=== PATIENT | male | born 1975 | race Caucasian/White ===

== ENCOUNTER 2018-06-23 02:22 | Emergency (ER) | payer OTHER, SELFPAY ==
[2018-06-23 02:25] VITALS: BP 149/97; PULSE 72; RESP 17; TEMP 36.4; O2SAT 96; BMI 28.0
--- NOTE | 2018-06-23 02:41 | ED.RN ---
CALLED MARCIA FROM [facility]. SHE IS HERE.
--- NOTE | 2018-06-23 02:59 | ED.VISSUMM ---
- ER Visit Summary Date of Service: 06/23/18 Chief Complaint: Left elbow injury History of Present Illness: The patient is a 42 M who presents with left elbow injury and pain. Injury occurred half an hour prior to presentation. 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 He had immediate pain. Patient states he had been wearing a sleeve for compression on his elbow for the prior 2 days. He is currently complaining of pain and weakness in the elbow. He is ambidextrous but predominantly right-handed. He denies any other complaints at this time. Physical Examination: Patient is awake and alert, well-nourished well-developed sitting in a chair in no distress. Patient has full active range of motion of all joints in the bilateral upper extremities. Radial pulses are 2+ and symmetric. Visual inspection shows asymmetric prominence of the brachial radialis on the left compared to the right. Patient has tenderness over the left lateral epicondyles and brachial radialis. Weak anesthetic assistant strength in the left hand and pain with extension of the wrist against resistance. Patient has increased anesthetic assistant strength when pressure is applied circumferentially around the forearm. No asymmetry to the biceps. No tenderness over the upper arm. AIN/PIN and ulnar nerve function are intact. Sensation intact all dermatomes. Test Results: Clinical Impression(s) from Imaging Studies Elbow X-Ray 06/23/18 02:47 IMPRESSION: Normal x-ray examination of the elbow. Electronically Signed: Garett Cortez MD at 3:48 EDT Tel , Service support , Emergency Department Course and Treatment: Patient presents after a left elbow injury at work. X-ray showed no dislocation or fracture, no soft tissue swelling. The examination is most consistent with lateral epicondylitis, possibly with a strain to the brachioradialis, as it is tender to palpation as well and shows mild swelling compared to the right. Patient was counseled in supportive care, including rest, ice, compression, and NSAID usage. He is to follow-up with orthopedics if he does not have improvement with conservative treatment. Worker's Comp. paperwork was filled out and patient is to follow up with corporate care as instructed by his employer. Patient was discharged home. Treatment Plan: [] Disposition: [] Impression: Left lateral epicondylitis This note was generated with [employer] dictation software. It may contain incorrect words, spelling, and punctuation that were not noted in review of the chart prior to signing ED Disposition - Plan for ED Patient: Disposition: Home or Assisted Living Chief Complaint: Upper Extremity Injury Instructions: ED Epicondylitis Lateral Elbow Referrals: Corporate,Care [GROUP OF PHYSICIANS] - As soon as possible Ezequiel Lopez, DO [STAFF PHYSICIAN] - 1 Week if not improving [facility],Out of [NON-STAFF] - Additional Instructions: Use ibuprofen or naproxen for the next 3-5 days to help with inflammation, even if you do not think you need it for pain management. Apply ice 3-4 times a day for 15-20 minutes each time. Rest the elbow as much as possible. Avoid any repetitive movements or lifting heavy weights while you are healing. You may use a compression band on the elbow or on the forearm as needed for comfort. If you continue to have worsening of your condition or if you are not noting improvement in 1 week, please follow-up with the orthopedic doctor for another evaluation. Please follow-up with Worker's Comp. as advised by your company. If you have any worsening of your condition or any new concerning symptoms, please return immediately to the emergency department for another evaluation.
--- NOTE | 2018-06-23 03:03 | ED.DCSUM_ITS ---
- ER Visit Summary Date of Service: 06/23/18 Chief Complaint: Left elbow injury History of Present Illness: The patient is a 42 M who presents with left elbow injury and pain. Injury occurred half an hour prior to presentation. 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 He had immediate pain. Patient states he had been wearing a sleeve for compression on his elbow for the prior 2 days. He is currently complaining of pain and weakness in the elbow. He is ambidextrous but predominantly right-handed. He denies any other complaints at this time. Physical Examination: Patient is awake and alert, well-nourished well-developed sitting in a chair in no distress. Patient has full active range of motion of all joints in the bilateral upper extremities. Radial pulses are 2+ and symmetric. Visual inspection shows asymmetric prominence of the brachial radialis on the left compared to the right. Patient has tenderness over the left lateral epicondyles and brachial radialis. Weak athletic director strength in the left hand and pain with extension of the wrist against resistance. Patient has increased athletic director strength when pressure is applied circumferentially around the forearm. No asymmetry to the biceps. No tenderness over the upper arm. AIN/PIN and ulnar nerve function are intact. Sensation intact all dermatomes. Test Results: Clinical Impression(s) from Imaging Studies Elbow X-Ray 06/23/18 02:47 IMPRESSION: Normal x-ray examination of the elbow. Electronically Signed: Garett Cortez MD at 3:48 EDT Tel , Service support , Emergency Department Course and Treatment: Patient presents after a left elbow injury at work. X-ray showed no dislocation or fracture, no soft tissue swelling. The examination is most consistent with lateral epicondylitis, possibly with a strain to the brachioradialis, as it is tender to palpation as well and shows mild swelling compared to the right. Patient was counseled in supportive care, including rest, ice, compression, and NSAID usage. He is to follow-up with orthopedics if he does not have improvement with conservative treatment. Worker's Comp. paperwork was filled out and patient is to follow up with corporate care as instructed by his employer. Patient was discharged home. Treatment Plan: [] Disposition: [] Impression: Left lateral epicondylitis This note was generated with [employer] dictation software. It may contain incorrect words, spelling, and punctuation that were not noted in review of the chart prior to signing ED Disposition - Plan for ED Patient: Disposition: Home or Assisted Living Chief Complaint: Upper Extremity Injury Instructions: ED Epicondylitis Lateral Elbow Referrals: Corporate,Care [GROUP OF PHYSICIANS] - As soon as possible Ezequiel Lopez, DO [STAFF PHYSICIAN] - 1 Week if not improving [facility],Out of [NON-STAFF] - Additional Instructions: Use ibuprofen or naproxen for the next 3-5 days to help with inflammation, even if you do not think you need it for pain management. Apply ice 3-4 times a day for 15-20 minutes each time. Rest the elbow as much as possible. Avoid any repetitive movements or lifting heavy weights while you are healing. You may use a compression band on the elbow or on the forearm as needed for comfort. If you continue to have worsening of your condition or if you are not noting improvement in 1 week, please follow-up with the orthopedic doctor for another evaluation. Please follow-up with Worker's Comp. as advised by your company. If you have any worsening of your condition or any new concerning symptoms, please return immediately to the emergency department for another evaluation.
--- NOTE | 2018-06-23 03:06 | DCINST.ED_ITS ---
ED Disposition - Plan for ED Patient: Disposition: Home or Assisted Living Chief Complaint: Upper Extremity Injury Instructions: ED Epicondylitis Lateral Elbow Referrals: [facility],Out of [Primary Care Provider] - Ezequiel Lopez DO [STAFF PHYSICIAN] - 1 Week if not improving Corporate,Care [GROUP OF PHYSICIANS] - As soon as possible Additional Instructions: Use ibuprofen or naproxen for the next 3-5 days to help with inflammation, even if you do not think you need it for pain management. Apply ice 3-4 times a day for 15-20 minutes each time. Rest the elbow as much as possible. Avoid any repetitive movements or lifting heavy weights while you are healing. You may use a compression band on the elbow or on the forearm as needed for comfort. If you continue to have worsening of your condition or if you are not noting improvement in 1 week, please follow-up with the orthopedic doctor for another evaluation. Please follow-up with Worker's Comp. as advised by your company. If you have any worsening of your condition or any new concerning symptoms, please return immediately to the emergency department for another evaluation.
[2018-06-23 04:10] VITALS: RESP 16
== END 2018-06-23 04:11 | disposition home or self-care (01) ==
PROVIDERS: Emergency Provider Emergency Medicine
DX: M77.12 Lateral epicondylitis, left elbow (principal); F17.290 Nicotine dependence, other tobacco product, uncomplicated
CPT/HCPCS: 73080; 99282

== ENCOUNTER → 2018-09-22 06:14 | Outpatient (CLI) | payer OTHER, SELFPAY ==
--- NOTE | 2018-09-22 06:16 | MRI_ITS ---
STUDY: MRI LEFT ELBOW REASON FOR EXAM: Decreased strength in left arm, lifting injury 3 months ago. TECHNIQUE: Standardized fat and water weighted pulse sequences were obtained in all 3 orthogonal planes. COMPARISON: Radiographs 06/23/2018. FINDINGS: Normal radio-capitellum articulation. Normal radial collateral ligamentous complex. There is tendinosis and an undersurface/intrasubstance partial tear of the common extensor tendon (inversion recovery coronal images 14, 15). There is mild arthrosis of the ulnotrochlear articulation with mild chondral thinning and subchondral cystic change (inversion recovery coronal images 14, 15). Normal ulnar collateral ligamentous complex. Normal common flexor tendon. The cubital tunnel is normal, with a normal ulnar nerve. There is an intrasubstance partial tear of the distal biceps tendon measuring 0.8 cm in length, approximately 1.1 cm proximal to the radial tuberosity insertion (T2 sagittal image 11; T2 axial image 10). Normal brachialis musculotendinous insertion. Normal triceps tendon and teno-osseous insertion. Normal olecranon process. The visualized distal humerus, proximal radius, and ulna are normal. The visualized muscles of the distal arm and proximal forearm are normal. There is a ganglion cyst anterior to the radial head (inversion recovery coronal image 9) measuring 1.1 cm in length. MRI/Upper Ext Joint Only(Routine) IMPRESSION: Lateral epicondylitis with undersurface/intrasubstance partial tear of the common extensor tendon. Intrasubstance partial tear of the distal biceps tendon. Mild ulnotrochlear arthrosis. Small ganglion cyst anterior to the radial head. Electronically Signed: Brian Robles MD at 8:38 EST Tel , Service support ,
== END ==
PROVIDERS: Family Provider Family Medicine; PCP Family Medicine; Referring Provider Orthopaedic Surgery; Visit Provider Orthopaedic Surgery
DX: M77.12 Lateral epicondylitis, left elbow (principal)
CPT/HCPCS: 73221

== ENCOUNTER 2018-11-24 08:00 | Outpatient (RCR) | payer OTHER, SELFPAY ==
--- NOTE | 2018-10-17 14:12 | HP.OTEVAL_ITS ---
Patient's Visit Information LUIS E PLUNKETT is a 42 year old M, referred to Occupational Therapy by Laura Melo DO, with a diagnosis of L elbow pain. Date of Evaluation: 10/17/18 Occupational Therapist: Pati Zimmer - Subjective Subjective: Arrived and noted injury started about 6 months ago. HE has continued to work at [employer] at same job. He noted that while at work he notices feeling like tendon was popping and went to reactor fueling supervisor who sent him to [facility]. He will recieve cortisone inject on 10/30/17. - Pain Left Elbow 2 Pain Intensity Range: 1, 8 - Objective Objective/Observation: Increased tenderness around elbow with palpation; decreased ROM and strength noted. - ROM Elbow: flexion R 7-120, L 18-113 - 3-4/10; extension R 18--8, L WFL Forearm: supination R 0-59, L 0-0 MP: WFL PIP: WFL DIP: WF - Strength Seed And Fertilizer Specialist: flexed position 2 R 115, L 106; extended position 2 R 116, L 64 Lateral Pinch: R 33, L 25 Tripod Pinch: R 30, L 21 Tip-to-Tip Pinch: R 19, L 11 - Sensation Thumb: R 3.84, L 3.22 Index: R 3.61 , L 2.83 Middle: R 3.22 , L 2.83 Ring: R 2.83 , L 2.83 Little: R 2.83 , L 3.22 Stereognosis: Normal - Right, Normal - Left Kinesthesia: Normal - Right, Normal - Left Proprioception: Normal - Right, Normal - Left - Nine Hole Peg Right: 24.08 s Left: 22.61 s - Upper Limb Functional Index ULFI Score: 10.5 - Quick DASH-Disab of Arm,Shoulder& Hand Quick DASH Score: 28.3325 - Rehabilitation General Assessment: Luis E seen for Ot evaluation on this date of 10/17/18. He has been dealing with elbow related pain for last six months. He has had MRI confirmation of distal partial biceps tendon tears, mild ulnotrochear arthosis and small ganglion cyst of radial head. He additional has decreased ROM, slight edema around L elbow, and decreased strength with L UE related tasks when compared to R UE. He has been working since time of injury. Luis E works at [employer]. 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 Due to pain and consisently decreased ROM, strength, and pain he would benefit from 2x 6 weeks of conservative management of L elbow to promote increased ROM. Rehabilitation Potential: Good - Anticipated Interventions Anticipated Interventions: Early Active Motion, A/AAROM/PROM, Strengthening, Edema Control, Modalities, Joint Protection/Energy Conservation, Ergonomic Education, Fine Motor Coord/Boris, ADL Training, Caregiver Training, Home Program - Visit Plan Frequency: 2x /Week Duration: 6 Weeks TEXT: Thank you for the opportunity to evaluate your patient. For Medicare and Medicare HMO plans, please review the plan of care and approve it. It will need to be FAXED BACK to us at [phone] for Medicare purposes. Please let me know if there are questions or concerns regarding this plan of care. Physician Signature: Date:
--- NOTE | 2018-10-17 17:22 | HP.OTEVAL_ITS ---
Patient's Visit Information LUIS E PLUNKETT is a 42 year old M, referred to Occupational Therapy by Laura Melo DO, with a diagnosis of L elbow pain. Date of Evaluation: 10/17/18 Occupational Therapist: Pati Zimmer - Subjective Subjective: Pt, referral from [facility]. Arrived and noted injury started about 6 months ago. HE has continued to work at [employer] at same job. He noted that while at work he notices feeling like tendon was popping and went to supervisor of operations who sent him to hospital. He will receive cortisone inject on 10/30/17. - Pain Left Elbow 2 Pain Intensity Range: 1, 8 - Objective Objective/Observation: Increased tenderness around elbow with palpation; decreased ROM and strength noted. - ROM Elbow: flexion R 7-120, L 18-113 - 3-4/10; extension R 18--8, L WFL Forearm: supination R 0-59, L 0-0 MP: WFL PIP: WFL DIP: WF ROM Comments: Increased achiness with all movements. - Strength Supervisor [employer]: flexed position 2 R 115, L 106; extended position 2 R 116, L 64 Lateral Pinch: R 33, L 25 Tripod Pinch: R 30, L 21 Tip-to-Tip Pinch: R 19, L 11 Strength Comments: increased achiness with all muscle testing. He noted that is baseline since injury 6 months ago. - Edema Elbow: slight edema noted around lateral epicondyle - Sensation Thumb: R 3.84, L 3.22 Index: R 3.61 , L 2.83 Middle: R 3.22 , L 2.83 Ring: R 2.83 , L 2.83 Little: R 2.83 , L 3.22 Stereognosis: Normal - Right, Normal - Left Kinesthesia: Normal - Right, Normal - Left Proprioception: Normal - Right, Normal - Left - Nine Hole Peg Right: 24.08 s Left: 22.61 s - Upper Limb Functional Index ULFI Score: 10.5 - Quick DASH-Disab of Arm,Shoulder& Hand Quick DASH Score: 28.3325 - Goals Goal:: Luis E to increase L UE orthotics prosthetics technician strength in flexed and extended position within 20 lbs of R UE to promote increase dstability and strength of L elbow to promote increased strength and decrease pain by d/c. Goal:: Luis E to maintain of increased L elbow ROM for flexion/extenion with ability to get to neutral position to promote increased mobility and decrease pain by d/c. Goal:: Luis E to have no more than 1/10 pain with repetitive tasks and with consistent lifting of 10-20 lbs to promote increased ability to complete ADL/IADLs at PLOF and decrease risk of further injury by d/c. Goal:: Dionicio to complete edema management program as needed for L UE edema at least 80% of the time to promote management of symptoms and promote return to all ADL/IADLs at PLOF. Goal:: Luis E to be (I) to complete good body mechanics and L UE mechanics with repetitive lifting tasks t4/5 trials 80% of the time to promote ideal posture and alignment to reduce pain and risk of further injury by d/c. Goal:: Luis E to be (i) to complete HEP for L UE to promote increase stability and pain management of L UE 4/5 trials 80% of the time to promote QOL and progression with conservation treatment by d/c. - Rehabilitation General Assessment: Luis E seen for OT evaluation on this date of 10/17/18. He has been dealing with elbow related pain for last six months. MRI confirmation of distal partial biceps tendon tears, mild ulnotrochear arthrosis and small ganglion cyst of radial head complete within last month. He has decreased ROM, slight edema around L elbow, and decreased strength with L UE related tasks when compared to R UE. He has been working since time of injury. Luis E works at [employer]. 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 Due to pain and consistently decreased ROM, strength, and pain he would benefit from 2x 6 weeks of conservative management of L elbow to promote increased ROM. Rehabilitation Potential: Good - Anticipated Interventions Anticipated Interventions: Early Active Motion, A/AAROM/PROM, Strengthening, Edema Control, Modalities, Joint Protection/Energy Conservation, Ergonomic Education, Fine Motor Coord/Boris, ADL Training, Caregiver Training, Home Program - Visit Plan Frequency: 2x /Week Duration: 6 Weeks General Plan: OT to work on general stability of L UE to promote pain management and edema reduction to increased ROM and general ability to complete ADl/IADl related tasks. He is to complete PRE for strengthening, modalities as needed for pain management, and general body line finisher training for the reduction of further injury to return to PLOF and all work related tasks with reduced pain. TEXT: Thank you for the opportunity to evaluate your patient. For Medicare and Medicare HMO plans, please review the plan of care and approve it. It will need to be FAXED BACK to us at [phone] for Medicare purposes. Please let me know if there are questions or concerns regarding this plan of c are. Physician Signature: Date:
--- NOTE | 2018-11-10 09:23 | OTREVAL_ITS ---
Laura Melo, DO, It has been my pleasure to treat LUIS E PLUNKETT over the last 6 visits for L elbow pain. Please see the progress note below for an update on the occupational therapy plan of care! Subjective: Arrived and noted cortisone injection is working. Feels he is about 85-90% back. Continues to work FT without pain. Objective/Function: Completed additional measurements and are as follows on this date of 11/10/18: ROM: Elbow: - flexion: R 14-124, L 15-120. Strength: Carpet Installation Specialist from Flexed position: R 128, L 123. Carpet Installation Specialist From extended position: R 134, L 120. lateral pinch: R 32, L 32. tripod: R 29, L 32. Pincer: R 20, L 19. Sensory testing with monofilament testing: R 2nd 2.83 , 3rd 2.83 ,4th 2.83 ,5th 2.83 ,thumb 3.22. L 2nd 2.83 , 3rd 3.22 ,4th 2.83 ,5th 3.22 ,thumb 3.22. Increase in strength and decrease in tenderness with palpation from initial evaluation. Plan Frequency: 2x /Week Duration: 3 Weeks Visits in this POC: 12 Plan: continue POC to finish remainder of 12 approved visits as needed. Will continue strengthening with BTE as well as will add in gym-based exercises. Will continue for next 3 appointments. New HEP provided for PRE. If doing well will start looking at d/c. HEP provided for upper back, shoulder, and elbow and forearm strengthening. Goals - Goals Goal:: Luis E to increase L UE humanities teacher strength in flexed and extended position within 30 lbs of R UE to promote increased stability and strength of L elbow to promote increased strength and decrease pain by d/c. Goal:: Luis E to maintain of increased L elbow ROM for flexion/extenion with ability to get to neutral position to promote increased mobility and decrease pain by d/c. Goal:: Luis E to have no more than 1/10 pain with repetitive tasks and with consistent lifting of 10-20 lbs to promote increased ability to complete ADL/IADLs at PLOF and decrease risk of further injury by d/c. Goal:: Dionicio to complete edema management program as needed for L UE edema at least 80% of the time to promote management of symptoms and promote return to all ADL/IADLs at PLOF. Goal:: Luis E to be (I) to complete good body mechanics and L UE mechanics with repetitive lifting tasks t4/5 trials 80% of the time to promote ideal posture and alignment to reduce pain and risk of further injury by d/c. Goal:: Luis E to be (i) to complete HEP for L UE to promote increase stability and pain management of L UE 4/5 trials 80% of the time to promote QOL and progression with conservation treatment by d/c. Anticipated Interventions Anticipated Interventions: Early Active Motion, A/AAROM/PROM, Strengthening, Edema Control, Modalities, Joint Protection/Energy Conservation, Ergonomic Education, Fine Motor Coord/Boris, ADL Training, Caregiver Training, Home Program Please do not hesitate to contact me at [phone] by phone or if you have questions or concerns regarding this new plan of care! Sincerely, Pati Zimmer
--- NOTE | 2018-11-24 08:26 | HP.OTDCSUM ---
HP - OT D/C Summary It has been my pleasure to treat LUIS E PLUNKETT under orders from Laura Melo DO for the diagnosis of L elbow pain for a total of 7 visit(s). Please see the following information for a summary of their discharge status. - Overall Improvement % Improvement: 100 - Objective Objective/Function: Completed reassessment on this date 11/24/18. Measurements on as follows: ROM: Elbow. - Flexion R 10-11, L 5-121. - Supination R 0-76, L 0-74. Strength: [employer] in flexed R 116, L 119. [employer] in extended: R 135, L 140. Lateral R 35, L 30. Three jaw R 30, L 32. Pincer R 16, L 18. Sensation testing: R hand 2-5th, thumb digits: 2.83, 3.61, 2.83, 2.83, thumb 3.22. L hand 2-5th digits, thumb: 2.83, 2.83, 2.83, 2.83, thumb 2.83. He has progressed in all tasks since inital evaluation and will be d/c'd at this time. 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 Goal:: Luis E to maintain of increased L elbow ROM for flexion/extenion with ability to get to neutral position to promote increased mobility and decrease pain by d/c. Goal:: Luis E to have no more than 1/10 pain with repetitive tasks and with consistent lifting of 10-20 lbs to promote increased ability to complete ADL/IADLs at PLOF and decrease risk of further injury by d/c. Goal:: Dionicio to complete edema management program as needed for L UE edema at least 80% of the time to promote management of symptoms and promote return to all ADL/IADLs at OF. Goal:: Luis E to be (I) to complete good body mechanics and L UE mechanics with repetitive lifting tasks t4/5 trials 80% of the time to promote ideal posture and alignment to reduce pain and risk of further injury by d/c. Goal:: Luis E to be (i) to complete HEP for L UE to promote increase stability and pain management of L UE 4/5 trials 80% of the time to promote QOL and progression with conservation treatment by d/c. - Plan Plan: continue HEP as instructed and can upgrade to blue theraband. He is to call with questions/concerns. - D/C Information If there are questions or concerns regarding this patient's occupational therapy, please fell free to call me at [phone]. Thank you for the referral of this patient. Sincerely, Pati Zimmer
== END 2018-11-24 19:00 | disposition home or self-care (01) ==
LOC: OT 08:00
PROVIDERS: Family Provider Family Medicine; PCP Family Medicine; Referring Provider Orthopaedic Surgery; Visit Provider Orthopaedic Surgery
DX: M77.12 Lateral epicondylitis, left elbow (principal)
CPT/HCPCS: 97035; 97110; 97166; 97168; 97530

== ENCOUNTER → 2021-02-07 08:14 | Outpatient (CLI) | payer OTHER, SELFPAY ==
[2021-02-07 10:08] LABS: Hematocrit 44.5 % (40-54); Mean Corp Hgb Conc 33.7 g/dL (32-36); Mean Corpuscular Hgb 30.3 pg (27.0-32.0); Mean Corpuscular Volume 89.9 fL (80-94); Mean Platelet Vol. 9.8 fl (6.2-12.0); Platelet Count 250 K/mm3 (150-450); RBC Distribution Width CV 11.8 % (11.6-14.6); RBC Distribution Width SD 38.8 fl (35.1-43.9); Red Blood Count 4.95 M/mm3 (4.6-6.2); White Blood Count 5.1 K/mm3 (4.4-11.0)
[2021-02-07 10:34] LABS: ALB/GLOB Ratio 1.4 RATIO (0.9-2.4); AST(SGOT) 38 U/L (15-37); Alanine Aminotransfer ALT/SGPT 65 U/L (16-61); Albumin, Serum 4.3 g/dL (3.2-5.0); Alkaline Phosphatase 79 U/L (45-117); Anion Gap 8 (5-15); BUN 14 mg/dL (7-18); Calcium,Total 8.9 mg/dL (8.5-10.1); Chloride 101 mmol/L (98-107); Creatinine, Serum 1.08 mg/dL (0.70-1.30); EST Glomerular Filtration Rate 79 mL/min (>60); Est Glom Filt Rate - Afr Amer 95 mL/min (>60); Glucose 135 mg/dL (74-106); Potassium 4.4 mmol/L (3.5-5.1); Protein, Total 7.3 g/dL (6.4-8.2); Sodium Level 139 mmol/L (136-145)
== END ==
PROVIDERS: PCP Family Medicine; Referring Provider Nurse Practitioner Family; Visit Provider Nurse Practitioner Family
DX: R10.9 Unspecified abdominal pain (principal)
CPT/HCPCS: 36415; 80053; 85027

== ENCOUNTER → 2021-02-08 08:31 | Outpatient (CLI) | payer OTHER, SELFPAY ==
[2021-02-08 10:33] LABS: GGTP 97 U/L (15-85)
[2021-02-09 06:08] LABS: HEPATITIS B SURFACE AG Negative (Negative); Hepatitis A AB, Total Negative (Negative); Hepatitis A IgM Antibody Negative (Negative); Hepatitis B Core AB IgM Negative (Negative); Hepatitis B Core Ab Total Negative (Negative); Hepatitis C Ab <0.1 s/co ratio (0.0-0.9)
[2021-02-09 16:27] LABS: Hep B Surface Antibodies Non Reactive (.)
== END ==
PROVIDERS: PCP Family Medicine; Referring Provider Family Medicine; Visit Provider Family Medicine
DX: R74.8 Abnormal levels of other serum enzymes (principal)
CPT/HCPCS: 36415; 82977; 86704; 86705; 86706; 86708; 86709; 86803; 87340

== ENCOUNTER → 2021-02-11 09:52 | Outpatient (CLI) | payer OTHER, SELFPAY ==
--- NOTE | 2021-02-11 09:58 | US_ITS ---
EXAM: US SCROTUM CLINICAL INDICATION: mass on exam - left testicle TECHNIQUE: Realtime ultrasound of the testicles was performed with grayscale and Color Doppler analysis. This report was created using [email or web address] technology. COMPARISON: None. FINDINGS: RIGHT TESTICLE: Unremarkable. Normal in size and echotexture. No focal lesion. Normal blood flow is present. LEFT TESTICLE: Unremarkable. Normal in size and echotexture. No focal lesion. Normal blood flow is present. EPIDIDYMIDES: Unremarkable. Normal in size and echotexture, without focal lesion. Normal color Doppler flow pattern in the epididymis. SCROTUM: Small septated right hydrocele. Slight left hydrocele. Bilateral varicoceles. US/Testicular with Arterial Flow IMPRESSION: No testicular masses. Right larger than left hydroceles with septations on the right side. Bilateral varicoceles. Electronically Signed: Nic Fernandez MD ([place]) at 15:38 EDT , Service support ,
--- NOTE | 2021-02-11 09:58 | US_ITS ---
INDICATION: ELEVATED LIVER ENZYMES EXAMINATION: US Abdomen RUQ (limited) TECHNIQUE: Contreras-scale and color Doppler imaging was performed of the right upper abdominal quadrant. COMPARISON: None. Findings: The liver is increased in echogenicity and sound attenuating. There is no evidence of contour nodularity. No focal hepatic mass is identified. The main portal vein is normal in size and patent demonstrating hepatopetal flow. The gallbladder is unremarkable without evidence of stones, wall thickening or pericholecystic fluid. Sonographic Rodgers''s tenderness is not appreciated. There is no evidence of intrahepatic biliary ductal dilatation. The CBD is nondilated measuring 4 mm at the level of the jaron hepatis. The visualized portions of the pancreas are unremarkable without evidence of focal or diffuse enlargement. Specifically, the tail is obscured by overlying bowel gas. Right kidney measures 10.1 cm in length. It is normal in echogenicity. No focal renal lesion is identified. There is no evidence of hydronephrosis. US/Abdomen Limited IMPRESSION: Hyperechoic and sound attenuating liver without evidence of contour nodularity. Findings are nonspecific and may be consistent with sequelae of fatty infiltration or other forms of diffuse liver disease. Remainder of the exam is otherwise unremarkable. Electronically Signed: Sudarshan Goel MD at 11:26 EDT Tel , Service support ,
== END ==
PROVIDERS: PCP Family Medicine; Referring Provider Nurse Practitioner Family; Visit Provider Nurse Practitioner Family
DX: N43.3 Hydrocele, unspecified (principal); I86.1 Scrotal varices; R74.8 Abnormal levels of other serum enzymes
CPT/HCPCS: 76705; 76870; 93976

== ENCOUNTER → 2021-03-09 07:57 | Outpatient (CLI) | payer OTHER, SELFPAY ==
--- NOTE | 2021-03-09 08:00 | CT_ITS ---
STUDY: CT ABDOMEN AND PELVIS WITH CONTRAST REASON FOR EXAM: Male, 45 years old. 5 year history of abdominal pain and lower back pain. RADIATION DOSAGE (If Supplied By Facility): CTDIvol = ( 16.50 ) mGy, DLP = ( 1288.77 ) mGycm TECHNIQUE: Transaxial images were obtained from the dome of the diaphragm to the symphysis pubis without oral contrast. Oral and amp; IV Readi-CAT and amp; 100mL Isovue-300 was administered. Sagittal and coronal images were reconstructed. Individualized dose optimization techniques were used for this CT. COMPARISON: None. FINDINGS: The visualized lung bases are unremarkable. The visualized portions of the heart are within normal limits. There is decreased attenuation of the liver consistent with steatosis. Hepatomegaly. Normal gallbladder and extrahepatic biliary system. Normal spleen. Normal pancreas. Normal bilateral adrenal glands. Normal right kidney. Normal left kidney. Normal visualized stomach. Normal small intestine. There is diffuse thickening of the wall of the left hemicolon. Colitis should be. Scattered sigmoid diverticula. The appendix is visualized and appears normal. There is scattered atherosclerotic calcification of the abdominal aorta, without a demonstrated aneurysm. Normal inferior vena cava. Normal retroperitoneum. Normal urinary bladder. Normal abdominal wall. Normal osseous structures. CT/Abdomen/Pelvis WITH Contrast IMPRESSION: Findings suggestive of colitis of the left hemicolon. Hepatomegaly and diffuse fatty infiltration of the liver. Electronically Signed: Bob Burns MD at 9:10 EDT , Service support ,
== END ==
PROVIDERS: PCP Family Medicine; Referring Provider Family Medicine; Visit Provider Family Medicine
DX: R10.9 Unspecified abdominal pain (principal)
CPT/HCPCS: 74177; Q9967

== ENCOUNTER → 2021-04-07 12:08 | Outpatient (CLI) | payer OTHER, SELFPAY ==
--- NOTE | 2021-04-07 12:11 | RAD_ITS ---
STUDY: X-RAY - THORACIC SPINE REASON FOR EXAM: Male, 45 years old. THORACIC BACK PAIN TECHNIQUE: 3 view(s) of the thoracic spine were obtained. COMPARISON: None. FINDINGS: Normal kyphosis of the thoracic spine. There is no substantial scoliosis. Normal thoracic vertebrae and endplates. Normal disc space heights. The soft tissue structures are unremarkable. RAD/Thoracic Spine 3 Views IMPRESSION: Normal x-ray examination of the thoracic spine. Electronically Signed: Bob Burns MD at 12:42 EDT , Service support ,
== END ==
PROVIDERS: PCP Family Medicine; Referring Provider Family Medicine; Visit Provider Family Medicine
DX: M54.6 Pain in thoracic spine (principal)
CPT/HCPCS: 72072

== ENCOUNTER → 2023-02-22 | Outpatient (CLI) | payer OTHER, SELFPAY ==
[2023-02-22 12:29] LABS: Bacteria 0 SEEN /hpf (None Seen); Mucous, Urine 0 SEEN /hpf (<or=2+); Red Blood Cells-Urine 0 SEEN /hpf (0-5); Squamous Epithelial Cells - UA 0 SEEN /hpf (0-5); White Blood Cells 0 SEEN /hpf (0-5)
[2023-02-22 12:35] LABS: Absolute Lymphocyte Count 1.12 X10^3/uL (0.83-4.51); Absolute Neutrophil Count 2.2 X10^3/uL (2.0-7.7); Basophil# 0.02 X10^3/uL; Basophil% 0.5 % (0-1); Eosinophil# 0.18 X10^3/uL; Eosinophils% 4.7 % (0-5); Hematocrit 44.2 % (40-54); Lymphocyte # 1.12 X10^3/ul (0.83-4.51); Mean Corp Hgb Conc 33.9 g/dL (32-36); Mean Corpuscular Hgb 30.2 pg (27.0-32.0); Mean Corpuscular Volume 88.9 fL (80-94); Monocyte# 0.31 X10^3/uL; NRBC Flagged by Analyzer 0 % (0-5); Neutrophil # 2.21 X10^3/uL (2.7-7.7); Neutrophil % 57.3 % (47-70); Platelet Count 206 K/mm3 (150-450); RBC Distribution Width CV 11.8 % (11.6-14.6); RBC Distribution Width SD 37.9 fl (35.1-43.9); Red Blood Count 4.97 M/mm3 (4.6-6.2); White Blood Count 3.9 K/mm3 (4.4-11.0)
[2023-02-22 12:45] LABS: ALB/GLOB Ratio 1.1 RATIO (0.9-2.4); AST(SGOT) 26 U/L (15-37); Alanine Aminotransfer ALT/SGPT 50 U/L (16-61); Albumin, Serum 3.9 g/dL (3.2-5.0); Alkaline Phosphatase 77 U/L (45-117); Anion Gap 3 (5-15); BUN 13 mg/dL (7-18); BUN/Creat Ratio 11.5 RATIO (10-20); Calcium,Total 8.8 mg/dL (8.5-10.1); Chloride 106 mmol/L (98-107); Cholesterol 163 mg/dL (200); Creatinine, Serum 1.13 mg/dL (0.70-1.30); EST Glomerular Filtration Rate 74 mL/min (>60); Est Glom Filt Rate - Afr Amer 90 mL/min (>60); Globulin 3.6 g/dL (2.2-4.2); Glucose 166 mg/dL (74-106); High Density Lipoprotein 26 mg/dL; Potassium 4.2 mmol/L (3.5-5.1); Protein, Total 7.5 g/dL (6.4-8.2); Sodium Level 136 mmol/L (136-145); Triglycerides 383 mg/dL; Very Low Density Lipoprotein 77 mg/dL (5-40)
[2023-02-22 15:53] LABS: Color, Urine Yellow (Yellow); Glucose, Dipstick Normal (Normal); Ketone-Dipstick Negative (Negative); Leukocyte Esterase-Dipstick Negative /ul (Negative); Nitrite-Dipstick Negative (Negative); Occult Blood-Urine Negative /ul (Negative); Protein-Dipstick 15 mg/dl (Negative); Specific Gravity, Urine 1.015 (1.002-1.030); Urine Bilirubin Dipstick Negative (Negative); Urine Clarity Clear (Clear); Urine Urobilinogen Normal (Normal)
== END | disposition home or self-care (01) ==
LOC: MFPLAB 08:24
PROVIDERS: Family Medicine; PCP Family Medicine; Visit Provider Family Medicine
DX: E11.9 Type 2 diabetes mellitus without complications (principal)
CPT/HCPCS: 36415; 80053; 80061; 81001; 85025

== ENCOUNTER → 2024-09-15 | Outpatient (CLI) | payer OTHER, SELFPAY ==
--- NOTE | 2024-09-15 13:28 | STRESSREP ---
Stress Test Report Exercise stress test. 48-year-old male with a history of chest pain Stress protocol: Resting EKG demonstrates normal sinus rhythm with a rate of 98 bpm resting blood pressure is 150/90 mmHg. The patient exercised according to the regular Christiano protocol for a total duration of 10 minutes completing 1 minute into stage IV of the Christiano protocol attaining a maximum heart rate of 173 bpm which was 100% of maximum predicted heart rate; the maximum workload was 13.4 METS metabolic equivalents. At rest there were no ST or T wave changes noted to suggest ischemia and at peak exercise upsloping ST changes only were noted which did not meet the criteria for ischemia. No clinical angina was noted the test was terminated due to the target heart rate being achieved/fatigue. The peak blood pressure was 220/96 mmHg. Rate-pressure product was 37,600. This was a hypertensive response to exercise Conclusion: Normal exercise stress test with no evidence of ischemia at a high workload. Hypertensive response to exercise
== END | disposition home or self-care (01) ==
LOC: CVS 11:41
PROVIDERS: PCP Family Medicine; Referring Provider Family Medicine; Visit Provider Family Medicine
DX: R06.02 Shortness of breath (principal)
CPT/HCPCS: 93017